=== PATIENT | female | born 1995 | race Hispanic/Latino ===

== ENCOUNTER 2024-09-02 15:18 | Emergency (ER) | payer OTHER, SELFPAY ==
[2024-09-02] VITALS (17 sets, daily range): BP systolic 108–141; BP diastolic 53–93; PULSE 53–97; RESP 12–21; TEMP 36.2; O2SAT 92–100; BMI 26.4
[2024-09-02] MEDS: ONDANSETRON 4 MG/2 ML INJ IV (15:47)
[2024-09-02 15:53] LABS: Add Manual Diff / Slide Review NO; Hematocrit 38.6 % (36-46); Hemoglobin 13.4 g/dL (12.0-16.0); Lymphocytes Absolute Auto 1100 /uL (1100-4500); Mean Corpuscular HGB Conc 34.7 % (30-36); Mean Corpuscular Hemoglobin 31.6 PG (26-34); Mean Corpuscular Volume 91.0 fL (80-100); Platelet Count 314 X10^3/uL (150-400)
[2024-09-02 16:06] LABS: Alanine Aminotransferase 18 IU/L (<35); Albumin 4.7 g/dL (3.5-5.0); Albumin Globulin Ratio 1.4 (1.0-2.8); Alkaline Phosphatase 68 U/L (38-126); Blood Urea Nitrogen 13 mg/dL (7-17); Calcium 8.9 mg/dL (8.4-10.2); Carbon Dioxide 25 mmol/L (22-32); Chloride 104 mmol/L (98-107); Estimated Glomerular Filt Rate > 60 mL/min (>60); Globulin 3.3 g/dL (1.7-4.1); Glucose 123 mg/dL (70-99); HEMOLYSIS < 15 (0-50); Lipase 27 U/L (23-300); Potassium 3.9 mmol/L (3.4-5.1); Sodium 138 mmol/L (137-145); Total Protein 8.0 g/dL (6.3-8.2)
[2024-09-02] MEDS: droPERidol 2.5 MG/ML VIAL 0.625 MG IV (17:05)
--- NOTE | 2024-09-02 17:20 | DI.CT.S_ITS ---
PROCEDURE: CT ABDOMEN PELVIS W CON INDICATIONS: Persistent nausea vomiting TECHNIQUE: After the administration of intravenous contrast, axial sections acquired from the lung bases to the pubic symphysis. Coronal and sagittal reformats were performed. For radiation dose reduction, the following was used: automated exposure control, adjustment of mA and/or kV according to patient size. COMPARISON: None. FINDINGS: Image quality: Diagnostic. Lower Chest: No significant findings. ABDOMEN: Liver: No solid mass. Gallbladder: No radiopaque gallstones or wall thickening. Biliary ducts: No biliary dilation. Pancreas: No ductal dilation. Spleen: Size is within normal limits. Adrenal Glands: No adrenal nodules. Kidneys and Ureters: No hydronephrosis. No solid mass. No complex renal cystic lesion which requires follow up. Stomach and Bowel: Normal colonic caliber, without significant wall thickening. The appendix is not dilated. No small bowel obstruction. No diverticulitis. Peritoneum: No abnormal intraperitoneal fluid. No free air. Ventral Wall: No significant ventral hernia. Abdominal Nodes: No retroperitoneal or mesenteric adenopathy by size criteria. Vessels: Aorta and inferior vena cava are normal in size. PELVIS: Pelvic Organs: Retroverted uterus. Bladder: No bladder wall thickening, accounting for underdistention. Pelvic Nodes: No enlarged lymph nodes. Miscellaneous: No inguinal hernias are seen. Bones: No aggressive osseous abnormality. IMPRESSION: No acute abnormality. No free fluid. No small bowel obstruction. Normal appendix. Dictated by: Tico Osei M.D. on 09/02/2024 at 18:40 Approved by: Tico Osei M.D. on 09/02/2024 at 18:45
[2024-09-02] MEDS: METOCLOPRAMIDE 10 MG/2 ML INJ IV (17:36)
[2024-09-02] MEDS: LACTATED RINGERS 1,000 ML 1000 ML IV (17:36)
--- NOTE | 2024-09-02 17:54 | EKG_ITS ---
[address] [address] Test Date: 2024-09-02 Pat Name: Shima Gan Department: [facility] Room: Gender: Female [employer] Analyst: POLO : 1995 Requested By: Order Number: [id number] Reading MD: Ari Molina Measurements Intervals [place] Rate: 61 P: -28 WA: 150 QRS: 18 QRSD: 76 T: 22 QT: 412 QTc: 414 Interpretive Statements Normal sinus rhythm Electronically Signed On 09-14-2024 8:45:34 PDT by Ari Molina
[2024-09-02 17:58] LABS: Culture Indicated Urine Cult Not Indicated
--- NOTE | 2024-09-02 19:06 | PC.NURSE ---
Friend reports pt has had abd issues since she was 14 years old . constant n/v. Pt states she had panera yesterday and vodka at night. RN explained to pt and friends about gut-friendly foods and diet i.e., alcohol avoidance
--- NOTE | 2024-09-02 20:49 | ED.NAVMDI ---
HPI - Nausea/Vomiting/Diarrhea General Chief complaint: Nausea/Vomiting/Diarrhea Stated complaint: Vomiting, Dizziness, Chills Time Seen by Provider: 09/02/24 16:44 Source: patient Mode of arrival: Ambulatory History of Present Illness HPI Narrative: 29-year-old female has nausea vomiting and diarrhea with left-sided crampy abdominal pain since earlier today. No recent antibiotics. No history of Crohn's disease or chronic abdominal problems. No household or close contact exposure to persons with similar symptoms. No fevers or chills. No painful or frequent urination. Denies back pain. Denies chest pain shortness of breath cough. Related Data Allergies Allergy/AdvReac Type Severity Reaction Status Date / Time No Known Drug Allergies Allergy Verified 09/02/24 15:22 Patient History Social History Smoking Status: Current some day smoker Smoking Status: Current some day smoker Exam Narrative Exam Narrative: GENERAL: Well-developed patient, in mild distress. HEAD: Atraumatic. Normocephalic. EYES: Pupils equal round and reactive. Extraocular motions intact. No scleral icterus. No injection or drainage. ENT: Nose without bleeding, purulent drainage. Throat without erythema, tonsillar hypertrophy or exudate. Airway patent. NECK: Trachea midline. Non tender CARDIOVASCULAR: Regular rate and rhythm without murmurs, gallops, or rubs. RESPIRATORY: Clear to auscultation. Breath sounds equal bilaterally. No wheezes, rales, or rhonchi. GASTROINTESTINAL: Abdomen nondistended, minimal tenderness left mid quadrant, no skin changes. Normal bowel tones without rushes or tinkles. EXTREMITIES: No edema or joint tenderness. BACK: Nontender without deformity or crepitance. No flank tenderness. NEURO: AOx3. Motor functions grossly nonfocal. SKIN: No rash or erythema of visible areas Initial Vital Signs Initial Vital Signs: Vital Signs Temperature 97.2 F L 09/02/24 15:22 Pulse Rate 73 09/02/24 15:22 Respiratory Rate 18 09/02/24 15:22 Blood Pressure 132/93 H 09/02/24 15:22 Pulse Oximetry 97 09/02/24 15:22 Oxygen Delivery Method Room Air 09/02/24 15:22 Course Orders Ordered: Discontinued Medications Droperidol (Droperidol 2.5 Mg/Ml Vial) 0.625 mg IV NOW ONE Stop: 09/02/24 16:45 Droperidol (Droperidol 2.5 Mg/Ml Vial) 0.625 mg IV NOW ONE Stop: 09/02/24 17:01 Last Admin: 09/02/24 17:05 Dose: 0.625 mg Documented By: CHAD Lactated Ringer's (Lactated Ringers) 1,000 mls @ 1,000 mls/hr IV BOLUS ONE Stop: 09/02/24 18:19 Last Infusion: 09/02/24 20:42 Dose: Infused Documented By: Admin: 09/02/24 17:36 Dose: 1,000 mls/hr Documented By: CHAD Loperamide HCl (Loperamide 2 Mg Capsule) 4 mg PO NOW ONE Stop: 09/02/24 20:57 Last Admin: 09/02/24 21:05 Dose: 4 mg Documented By: OZZIE Metoclopramide HCl (Metoclopramide 10 Mg/2 Ml Inj) 10 mg IV NOW ONE Stop: 09/02/24 17:20 Last Admin: 09/02/24 17:36 Dose: 10 mg Documented By: CHAD Ondansetron HCl (Ondansetron 4 Mg/2 Ml Inj) 4 mg IV NOW PRN PRN Reason: Nausea And Vomiting Last Admin: 09/02/24 15:47 Dose: 4 mg Documented By: YOVANNY Ondansetron HCl (Ondansetron 4 Mg Odt) 4 mg PO NOW PRN PRN Reason: Nausea And Vomiting Ondansetron HCl (Ondansetron 4 Mg Odt Prepack) 1 bottle MISC DIRECTED ONE Stop: 09/02/24 20:57 Last Admin: 09/02/24 21:05 Dose: 1 bottle Documented By: OZZIE Prochlorperazine (Prochlorperazine 10 Mg/2 Ml Vial) 5 mg IV NOW ONE Stop: 09/02/24 16:46 Last Admin: 09/02/24 16:50 Dose: Not Given Documented By: CHAD Vital Signs Vital signs: Vital Signs - 8 hr 09/02/24 15:22 09/02/24 16:20 09/02/24 16:30 Temperature 97.2 F L Pulse Rate 73 72 53 L Respiratory Rate 18 Blood Pressure 132/93 H Pulse Oximetry 97 100 98 Oxygen Delivery Method Room Air 09/02/24 17:00 09/02/24 17:01 09/02/24 17:01 Temperature Pulse Rate 81 97 H Respiratory Rate Blood Pressure 140/90 Pulse Oximetry 100 99 Oxygen Delivery Method 09/02/24 17:31 09/02/24 17:32 09/02/24 17:32 Temperature Pulse Rate 73 67 Respiratory Rate 12 Blood Pressure 141/87 H Pulse Oximetry 92 95 Oxygen Delivery Method 09/02/24 18:00 09/02/24 18:01 09/02/24 18:01 Temperature Pulse Rate 67 67 Respiratory Rate 15 17 Blood Pressure 139/78 Pulse Oximetry 94 94 Oxygen Delivery Method 09/02/24 18:30 09/02/24 19:00 Temperature Pulse Rate 81 70 Respiratory Rate 21 20 Blood Pressure Pulse Oximetry 98 98 Oxygen Delivery Method MDM - Nausea/Vomiting/Diarrhea Lab Data Attestation: I reviewed the patient's lab results. Lab results narrative: White blood cell count 8900, hemoglobin 13.4, platelets 304,000. BMP with glucose 123, normal renal function, normal serum CO2, normal electrolytes. Liver functions and lipase normal. Urine test negative. UA negative. 09/02/24 15:45 09/02/24 15:45 Labs: Lab Results 09/02/24 09/02/24 Range/Units 15:45 17:24 WBC 8.9 (4.5-11.0) X10^3/uL RBC 4.25 (4.0-5.2) X10^6/uL Hgb 13.4 (12.0-16.0) g/dL Hct 38.6 (36-46) % MCV 91.0 (80-100) fL MCH 31.6 (26-34) PG MCHC 34.7 (30-36) % RDW 12.3 (11.6-14.8) % Plt Count 314 (150-400) X10^3/uL Neut % (Auto) 85.0 H (50-75) % Lymph % (Auto) 11.8 L (25-40) % [place] % (Auto) 2.8 L (3-14) % Eos % (Auto) 0.0 L (2-4) % Baso % (Auto) 0.4 (0-2) % Neut # (Auto) 7600 H (4336-1714) /uL Lymph # (Auto) 1100 (1310-0254) /uL [place] # (Auto) 200 (0-900) /uL Eos # (Auto) 0 (0-450) /uL Baso # (Auto) 0 (0-100) /uL Sodium 138 (137-145) mmol/L Potassium 3.9 (3.4-5.1) mmol/L Chloride 104 (98-107) mmol/L Carbon Dioxide 25 (22-32) mmol/L BUN 13 (7-17) mg/dL Creatinine 0.59 (0.52-1.04) mg/dL Estimated GFR > 60 (>60) mL/min BUN/Creatinine Ratio 22.0 (6-22) Glucose 123 H (70-99) mg/dL Calcium 8.9 (8.4-10.2) mg/dL Total Bilirubin 0.3 (0.2-1.3) mg/dL AST 26 (14-36) IU/L ALT 18 (<35) IU/L Alkaline Phosphatase 68 (38-126) U/L Total Protein 8.0 (6.3-8.2) g/dL Albumin 4.7 (3.5-5.0) g/dL Globulin 3.3 (1.7-4.1) g/dL Albumin/Globulin Ratio 1.4 (1.0-2.8) Lipase 27 (23-300) U/L Urine RBC 0-1/hpf (0-5/HPF) Urine WBC 0-1/hpf (0-5/HPF) Ur Squamous Epith Cells None seen (0-5/HPF) Urine Bacteria None seen (None) Ur Culture Indicated? Cult not indicated Vol Urine Centrifuged 10ml (spun) Point of Care Testing Test Results Negative Urine Dip Bedside Urine Glucose Negative Bedside Urine Bilirubin - Negative Bedside Urine Ketone - Negative Urine Specific [place] 1.010 Bedside Urine Occult Blood + Bedside Urine pH 8.5 Bedside Urine Protein +/- 15 Bedside Urine Urobilinogen - Negative Bedside Urine Nitrite - Negative Bedside Urine Leukocytes - Negative Esterase Imaging Data CT scan - abdomen/pelvis: Radiologist's Impression: Close Abdomen/Pelvis CT (Signed) Tico Osei - 09/02/24 Launch?[address] [address] [address] Scan Report Signed Patient: Shima Gan MR#: [id number] : 1995 Acct:[id number] Age/Sex: 29 / F Date of Service: 09/02/24 Loc: ED Accession Number: [id number] Procedure: CT abdomen pelvis w con Ordering Provider: Lisa Oliveira MD PROCEDURE: CT ABDOMEN PELVIS W CON INDICATIONS: Persistent nausea vomiting TECHNIQUE: After the administration of intravenous contrast, axial sections acquired from the lung bases to the pubic symphysis. Coronal and sagittal reformats were performed. For radiation dose reduction, the following was used: automated exposure control, adjustment of mA and/or kV according to patient size. COMPARISON: None. FINDINGS: Image quality: Diagnostic. Lower Chest: No significant findings. ABDOMEN: Liver: No solid mass. Gallbladder: No radiopaque gallstones or wall thickening. Biliary ducts: No biliary dilation. Pancreas: No ductal dilation. Spleen: Size is within normal limits. Adrenal Glands: No adrenal nodules. Kidneys and Ureters: No hydronephrosis. No solid mass. No complex renal cystic lesion which requires follow up. Stomach and Bowel: Normal colonic caliber, without significant wall thickening. The appendix is not dilated. No small bowel obstruction. No diverticulitis. Peritoneum: No abnormal intraperitoneal fluid. No free air. Ventral Wall: No significant ventral hernia. Abdominal Nodes: No retroperitoneal or mesenteric adenopathy by size criteria. Vessels: Aorta and inferior vena cava are normal in size. PELVIS: Pelvic Organs: Retroverted uterus. Bladder: No bladder wall thickening, accounting for underdistention. Pelvic Nodes: No enlarged lymph nodes. Miscellaneous: No inguinal hernias are seen. Bones: No aggressive osseous abnormality. IMPRESSION: No acute abnormality. No free fluid. No small bowel obstruction. Normal appendix. Dictated by: Tico Osei M.D. on 09/02/2024 at 18:40 Approved by: Tico Osei M.D. on 09/02/2024 at 18:45 ECG Data Attestation: I personally reviewed and interpreted this ECG as follows: Interpretation: 1754, normal sinus rhythm with a rate of 61, no obvious ST segment elevation or depression changes. Decreased T-wave amplitude inferior leads. [place] 150, QRS 76, QTC 414. [facility] Narrative Medical decision making narrative: 29-year-old female with nausea and vomiting diarrhea, left-sided discomfort with mid quadrant minimal tenderness. Labs pending. IV fluids given, IV Zofran. Lab data: White blood cell count 8900, hemoglobin 13.4, platelets 304,000. BMP with glucose 123, normal renal function, normal serum CO2, normal electrolytes. Liver functions and lipase normal. Urine test negative. UA negative. No stool specimen collected for lab. Oral Imodium. Home pack ODT ondansetron. Feels better and wants to go home. Discharged home per patient request. Return precautions discussed. Discharge Plan Departure Patient Disposition: Home Clinical Impression: Nausea vomiting and diarrhea Instructions: DI for Nausea -- Adult, DI for Vomiting -- Adult Activity Restrictions/Additional Instructions: Recent nausea and vomiting and loose stooling. Screening labs unremarkable. Some discomfort left middle quadrant. CT scan of the abdomen and pelvis showed no acute changes at this time. Oral dose of Imodium given to help prevent further stooling. Home pack of oral dissolvable ondansetron dispensed as a home pack to use if needed for control of nausea and vomiting if there is any further symptoms. Drink plenty of fluids. Consider use of Gatorade/Powerade hydration as well. Recheck with your regular doctor if not improving in the next couple of days. Return to this/nearest emergency department for any change worsening symptoms or any concerns prior. Stand Alone Forms: Patient Portal/API
[2024-09-02] MEDS: ONDANSETRON 4 MG ODT PREPACK 1 BOTTLE MISC (21:05)
[2024-09-02] MEDS: LOPERAMIDE 2 MG CAPSULE 4 MG PO (21:05)
== END 2024-09-02 21:17 | disposition home or self-care (01) ==
PROVIDERS: Emergency Medicine; Emergency Provider Emergency Medicine
DX: R11.2 Nausea with vomiting, unspecified (principal); R19.7 Diarrhea, unspecified
CPT/HCPCS: 36415; 74177; 80053; 81003; 81015; 81025; 83690; 85025; 93005; 96361; 96374; 96375; 99284; J1790; J2405; J2765; Q9967